=== PATIENT | female | born 1975 | race Caucasian/White ===

== ENCOUNTER 2025-03-04 09:23 | Outpatient (CLI) | payer MEDICARE | END 2025-03-04 09:24 | disposition home or self-care (01) | LOC: CSHMAMMO 09:23 | PROVIDERS: ATTEND Family Medicine | DX: Z12.31 Encounter for screening mammogram for malignant neoplasm of breast (principal); Z80.3 Family history of malignant neoplasm of breast; N64.89 Other specified disorders of breast | CPT/HCPCS: 77063; 77067 ==

== ENCOUNTER 2025-03-14 07:58 | Outpatient (CLI) | payer MEDICARE | END 2025-03-14 07:59 | disposition home or self-care (01) | LOC: CSHMAMMO 07:58 | PROVIDERS: ATTEND Family Medicine | DX: N64.89 Other specified disorders of breast (principal) | CPT/HCPCS: 77065; G0279 ==